=== PATIENT | male | born 1945 | race African-American/Black ===

== ENCOUNTER 2017-07-21 13:20 | Inpatient (IN) | payer MEDICARE, MEDICAID ==
[~2017-07-21] VITALS: Ht 188 cm; Wt 84.4 kg
[2017-07-21] MEDS ORDERED: GLIP5TAB12 PO ×2 (13:27→23:58)
[2017-07-21] MEDS ORDERED: BACL20TA PO (13:27)
[2017-07-21] MEDS ORDERED: LINA5TAB PO (13:27)
[2017-07-21] MEDS ORDERED: CARV25TA47 PO (13:27)
[2017-07-21] MEDS ORDERED: ZOLP10TA2 PO (13:27)
[2017-07-21] MEDS ORDERED: ROSU20TA PO (13:28)
[2017-07-21] MEDS ORDERED: FURO-151 PO (13:28)
[2017-07-21] MEDS ORDERED: SPIR25TA4 PO (13:30)
[2017-07-21] MEDS ORDERED: FURO80TA3 PO (13:37)
[2017-07-21] MEDS ORDERED: ISOS60TA4 PO (13:37)
[2017-07-21] MEDS ORDERED: ASPI-1159 PO (13:37)
[2017-07-21] MEDS ORDERED: CLOP75TA16 PO (13:37)
[2017-07-21] MEDS ORDERED: DEXT 5% WATER + KCL 20MEQ/L 1,000 ML IV ONE (14:15)
[2017-07-21 14:57] LABS: BASOPHILS % 0.1 % (0.0-2.0); EOSINOPHILS % 0.1 % (0.0-5.0); HEMATOCRIT. 25.2 % (42.0-52.0); HEMOGLOBIN. 8.3 g/dL (14.0-18.0); LYMPHOCYTES % 7.5 % (20.0-50.0); MEAN CORPUSCULAR HEMOGLOBIN 27.7 pg (28.0-32.0); MEAN CORPUSCULAR VOLUME 84.8 fL (80.0-94.0); MEAN PLATELET VOLUME 9.4 fl (7.4-10.4); MONOCYTES % 4.3 % (2.0-8.0); PLATELET 102 x1000/uL (130-400); RED BLOOD CELL COUNT 2.97 mill/uL (4.7-6.1); RED CELL DISTRIBUTION WIDTH 19.6 % (11.6-14.6)
[2017-07-21 14:59] LABS: INR 1.4
[2017-07-21 15:00] LABS: CHLORIDE 113 mEq/L (98-107)
[2017-07-21 15:02] LABS: CARBON DIOXIDE 22 mEq/L (21-32)
[2017-07-21 15:58] LABS: CLARITY URINE CLEAR (CLEAR); COLOR URINE YELLOW (YELLOW); GLUCOSE URINE NEGATIVE (NEGATIVE); KETONES URINE NEGATIVE (NEGATIVE); LEUKOCYTE ESTERASE URINE NEGATIVE (NEGATIVE); NITRITE URINE POSITIVE (NEGATIVE); OCCULT BLOOD URINE 1+ (NEGATIVE); PROTEIN URINE 2+ (NEGATIVE); SPECIFIC GRAVITY URINE 1.013 (1.005-1.030); UROBILINOGEN URINE 0.2 E.U./dL (0.2-1.0)
[2017-07-21] MEDS ORDERED: HYDRALAZINE 20MG/ML VIAL IV ONE (16:00)
[2017-07-21] MEDS ORDERED: LORAZEPAM 2MG/ML CPJ IV ONE (17:00)
[2017-07-21] MEDS ORDERED: CEFTRIAXONE 1 G PREMIX 50 ML IV ONE (17:00)
[2017-07-21] MEDS ORDERED: IPRATROPIUM/ALBUTEROL 0.5-3(2.5)MG/3ML NEB INH PRN (19:45)
[2017-07-21] MEDS ORDERED: DIPHENHYDRAMINE 50MG/ML VIAL IV PRN (19:45)
[2017-07-21] MEDS ORDERED: ONDANSETRON HCL 4MG/2ML VIAL IV PRN (19:45)
[2017-07-21] MEDS ORDERED: MAGNESIUM/ALUMINUM HYDROXIDE/SIMETHICONE 30ML UDC PO PRN (19:45)
[2017-07-21] MEDS ORDERED: ACETAMINOPHEN 325MG TABLET PO PRN (19:45)
[2017-07-21] MEDS: CLONIDINE 0.1MG TABLET PO PRN (20:52)
[2017-07-21] MEDS ORDERED: DEXTROSE 50% WATER 50ML SYRINGE IV PRN (21:21)
[2017-07-21 23:00] VITALS: BP 186/64
[2017-07-21] MEDS ORDERED: DEXT 5%/0.45% NACL 1000ML 1,000 ML IV SCH (23:00)
[2017-07-21] MEDS ORDERED: FERR325T6 PO (23:37)
[2017-07-21 23:53] VITALS: BP 181/89
[2017-07-22] MEDS: HYDRALAZINE 20MG/ML VIAL IV PRN (02:13)
[2017-07-22] MEDS: GUAIFENESIN 200MG/10ML SUGAR FREE UDC PO PRN ×2 (04:35→20:45)
[2017-07-22 06:04] VITALS: BP 155/72
[2017-07-22] MEDS: BLOOD SUGAR DIAGNOSTIC STRIP TEST SCH ×5 (07:20→20:46)
[2017-07-22 07:29] VITALS: BP 146/75
[2017-07-22] MEDS: INSULIN LISPRO 100 UNITS/ML SUBCUT SCH ×5 (07:50→20:46)
[2017-07-22] MEDS ORDERED: CARVEDILOL 25MG TABLET PO SCH (09:00)
[2017-07-22] MEDS: CARVEDILOL 25MG TABLET PO SCH ×2 (09:00→20:46)
[2017-07-22] MEDS: ISOSORBIDE MONONITRATE 60MG TABLET SR 24HR PO SCH (09:00)
[2017-07-22 09:02] LABS: *AMPHETAMINES SCREEN URINE NEGATIVE (NEGATIVE); *BARBITURATES SCREEN URINE NEGATIVE (NEGATIVE); *BENZODIAZEPINES SCREEN URINE NEGATIVE (NEGATIVE); *COCAINE SCREEN URINE NEGATIVE (NEGATIVE); CANNABINOID URINE SCREEN NEGATIVE (NEGATIVE); METHADONE URINE SCREEN NEGATIVE (NEGATIVE); OPIATES URINE SCREEN PRESUMTIVE POSITIVE (NEGATIVE); PHENCYCLIDINE URINE SCREEN NEGATIVE (NEGATIVE)
[2017-07-22] MEDS: FUROSEMIDE 40MG/4ML VIAL IVP SCH (09:18)
[2017-07-22] MEDS: ASPIRIN 81MG EC TABLET PO SCH (09:18)
[2017-07-22] MEDS: CLOPIDOGREL 75MG TABLET PO SCH (09:19)
[2017-07-22] MEDS: SPIRONOLACTONE 25MG TABLET PO SCH (09:19)
[2017-07-22 11:43] VITALS: BP 157/80
[2017-07-22 16:00] VITALS: BP 154/82
[2017-07-22 16:09] VITALS: BP 162/87
[2017-07-22 20:00] VITALS: BP 158/85
[2017-07-23] VITALS: BP 164/85
[2017-07-23] MEDS: CLONIDINE 0.1MG TABLET PO PRN (00:53)
[2017-07-23] MEDS ORDERED: ZOLPIDEM TARTRATE 5MG TABLET PO PRN (01:30)
[2017-07-23 04:00] VITALS: BP 166/83
[2017-07-23] MEDS: HYDRALAZINE 20MG/ML VIAL IV PRN (05:57)
[2017-07-23] MEDS: BLOOD SUGAR DIAGNOSTIC STRIP TEST SCH ×3 (06:23→17:04)
[2017-07-23] MEDS: INSULIN LISPRO 100 UNITS/ML SUBCUT SCH ×3 (07:38→17:06)
[2017-07-23 08:00] VITALS: BP 162/75
[2017-07-23] MEDS: CARVEDILOL 25MG TABLET PO SCH (09:00)
[2017-07-23] MEDS: ISOSORBIDE MONONITRATE 60MG TABLET SR 24HR PO SCH (09:00)
[2017-07-23] MEDS: SPIRONOLACTONE 25MG TABLET PO SCH (09:41)
[2017-07-23] MEDS: CLOPIDOGREL 75MG TABLET PO SCH (09:41)
[2017-07-23] MEDS: FUROSEMIDE 40MG/4ML VIAL IVP SCH (09:41)
[2017-07-23] MEDS: ASPIRIN 81MG EC TABLET PO SCH (09:41)
[2017-07-23 12:00] VITALS: BP 164/86
[2017-07-23 14:58] VITALS: BP 162/73
[2017-07-24] MEDS ORDERED: MULTIVITAMINS,THER W-MINERALS TABLET PO SCH (09:00)
[2017-07-24] MEDS ORDERED: ASCORBIC ACID 250 MG TABLET PO SCH (09:00)
[2017-07-24] MEDS ORDERED: ZINC SULFATE 220 MG ( 50 ) CAPSULE PO SCH (09:00)
== END 2017-07-23 22:15 | disposition home or self-care (01) | DRG 70 ==
LOC: ER 14:03 → 6WST 17:08 → ENRESERV 20:11 → 6WST 07-22 00:01
PROVIDERS: ADMIT Internal Medicine; ATTEND Internal Medicine
DX: G93.41 Metabolic encephalopathy (principal); E43 Unspecified severe protein-calorie malnutrition; I50.23 Acute on chronic systolic (congestive) heart failure; I13.0 Hypertensive heart and chronic kidney disease with heart failure and stage 1 through stage 4 chronic kidney disease, or unspecified chronic kidney disease; I69.354 Hemiplegia and hemiparesis following cerebral infarction affecting left non-dominant side; N30.00 Acute cystitis without hematuria; E11.649 Type 2 diabetes mellitus with hypoglycemia without coma; E11.22 Type 2 diabetes mellitus with diabetic chronic kidney disease; N18.9 Chronic kidney disease, unspecified; D63.8 Anemia in other chronic diseases classified elsewhere; Z79.82 Long term (current) use of aspirin; Z82.49 Family history of ischemic heart disease and other diseases of the circulatory system; Z79.899 Other long term (current) drug therapy; Z83.3 Family history of diabetes mellitus; Z95.4 Presence of other heart-valve replacement; Z68.23 Body mass index [BMI] 23.0-23.9, adult
CPT/HCPCS: 36415; 71010; 80053; 80305; 81001; 82962; 83036; 83605; 85025; 85610; 87040; 93005; 93306; 96374; 99285; J0360; J0696; J1940; J2060; J7030; J7060; J7620

== ENCOUNTER 2017-08-27 04:34 | Inpatient (IN) | payer MEDICARE, MEDICAID ==
[~2017-08-27] VITALS: Ht 188 cm; Wt 85.7 kg
[~2017-08-27 04:34] MED LIST: ASPI-1159 PO; BACL20TA PO; CARV25TA47 PO; CLOP75TA16 PO; FERR325T6 PO; FURO-151 PO; ISOS60TA4 PO; ROSU20TA PO; SPIR25TA4 PO; ZOLP10TA2 PO
[2017-08-27 06:39] LABS: INR 1.3; PROTHROMBIN TIME 13.2 sec (9.4-11.6)
[2017-08-27 06:40] LABS: BASOPHILS % 0.3 % (0.0-2.0); EOSINOPHILS % 0.6 % (0.0-5.0); HEMATOCRIT. 28.9 % (42.0-52.0); HEMOGLOBIN. 9.7 g/dL (14.0-18.0); LYMPHOCYTES % 11.2 % (20.0-50.0); MEAN CORPUSCULAR HEMOGLOBIN 28.8 pg (28.0-32.0); MEAN CORPUSCULAR VOLUME 85.7 fL (80.0-94.0); MEAN PLATELET VOLUME 9.3 fl (7.4-10.4); MONOCYTES % 6.5 % (2.0-8.0); NEUTROPHILS % 81.4 % (40.0-76.0); PLATELET 102 x1000/uL (130-400); RED BLOOD CELL COUNT 3.38 mill/uL (4.7-6.1); RED CELL DISTRIBUTION WIDTH 17.4 % (11.6-14.6)
[2017-08-27 06:47] LABS: CARBON DIOXIDE 26 mEq/L (21-32); CHLORIDE 112 mEq/L (98-107); TROPONIN I 0.06 ng/mL (0.00-0.04)
[2017-08-27] MEDS ORDERED: FUROSEMIDE 40MG/4ML VIAL IVP ONE (07:45)
[2017-08-27] MEDS ORDERED: ASPIRIN 81MG TABLET PO ONE (08:15)
[2017-08-27 09:00] VITALS: BP 188/104
[2017-08-27 09:54] VITALS: BP 188/104
[2017-08-27] MEDS ORDERED: ENOXAPARIN 40MG/0.4ML SYR SUBCUT SCH ×2 (12:00→14:30)
[2017-08-27 12:30] VITALS: BP 172/100
[2017-08-27 14:00] LABS: CREATINE KINASE MB FRACTION 3.2 ng/mL (0.5-3.6); TROPONIN I 0.06 ng/mL (0.00-0.04)
[2017-08-27 14:07] LABS: T4 FREE 1.54 ng/dL (0.76-1.46)
[2017-08-27 14:17] LABS: GLUCOSE URINE NEGATIVE (NEGATIVE); KETONES URINE NEGATIVE (NEGATIVE); LEUKOCYTE ESTERASE URINE 1+ (NEGATIVE); NITRITE URINE NEGATIVE (NEGATIVE); OCCULT BLOOD URINE 1+ (NEGATIVE); PROTEIN URINE 2+ (NEGATIVE); SPECIFIC GRAVITY URINE 1.009 (1.005-1.030); UROBILINOGEN URINE 0.2 E.U./dL (0.2-1.0)
[2017-08-27 14:20] LABS: CLARITY URINE CLOUDY (CLEAR); COLOR URINE YELLOW (YELLOW)
[2017-08-27] MEDS ORDERED: DIPHENHYDRAMINE 50MG/ML VIAL IV PRN (14:30)
[2017-08-27] MEDS ORDERED: CLONIDINE 0.1MG TABLET PO PRN (14:30)
[2017-08-27] MEDS ORDERED: ONDANSETRON HCL 4MG/2ML VIAL IV PRN (14:30)
[2017-08-27] MEDS ORDERED: IPRATROPIUM/ALBUTEROL 0.5-3(2.5)MG/3ML NEB INH PRN (14:30)
[2017-08-27] MEDS ORDERED: CARVEDILOL 25MG TABLET PO SCH (14:30)
[2017-08-27 14:32] LABS: *AMPHETAMINES SCREEN URINE NEGATIVE (NEGATIVE); *BARBITURATES SCREEN URINE NEGATIVE (NEGATIVE); *BENZODIAZEPINES SCREEN URINE NEGATIVE (NEGATIVE); *COCAINE SCREEN URINE NEGATIVE (NEGATIVE); CANNABINOID URINE SCREEN NEGATIVE (NEGATIVE); METHADONE URINE SCREEN NEGATIVE (NEGATIVE); OPIATES URINE SCREEN PRESUMTIVE POSITIVE (NEGATIVE); PHENCYCLIDINE URINE SCREEN NEGATIVE (NEGATIVE)
[2017-08-27] MEDS: SPIRONOLACTONE 25MG TABLET PO SCH ×2 (15:43→20:02)
[2017-08-27 16:03] VITALS: BP 171/102
[2017-08-27 20:00] VITALS: BP 166/90
[2017-08-27] MEDS: ISOSORBIDE MONONITRATE 60MG TABLET SR 24HR PO SCH (20:03)
[2017-08-27] MEDS ORDERED: DEXTROSE 50% WATER 50ML SYRINGE IV PRN (22:15)
[2017-08-27] MEDS: ATORVASTATIN CALCIUM 20MG TABLET PO SCH (22:16)
[2017-08-27] MEDS: CARVEDILOL 6.25 MG TABLET PO SCH (23:36)
[2017-08-27] MEDS: LOSARTAN POTASSIUM 50 MG TABLET PO SCH (23:36)
[2017-08-27] MEDS: SODIUM CHLORIDE 0.9% INJ 3ML FLUSH IVF SCH (23:37)
[2017-08-28] VITALS (7 sets, daily range): BP systolic 142–174; BP diastolic 88–101
[2017-08-28 00:12] LABS: TROPONIN I 0.05 ng/mL (0.00-0.04)
[2017-08-28] MEDS: ZOLPIDEM TARTRATE 5MG TABLET PO PRN ×2 (03:57→21:42)
[2017-08-28] MEDS: BLOOD SUGAR DIAGNOSTIC STRIP TEST SCH ×4 (06:26→21:41)
[2017-08-28] MEDS: SODIUM CHLORIDE 0.9% INJ 3ML FLUSH IVF SCH ×3 (06:26→21:41)
[2017-08-28 07:03] LABS: CARBON DIOXIDE 28 mEq/L (21-32)
[2017-08-28 07:10] LABS: CREATINE KINASE 64 IU/L (39-308); CREATINE KINASE MB FRACTION 2.6 ng/mL (0.5-3.6); TROPONIN I 0.04 ng/mL (0.00-0.04)
[2017-08-28] MEDS ORDERED: INSULIN LISPRO 100 UNITS/ML SUBCUT SCH (07:50)
[2017-08-28 07:58] LABS: CHLORIDE 113 mEq/L (98-107)
[2017-08-28] MEDS: FUROSEMIDE 40MG/4ML VIAL IVP SCH (08:34)
[2017-08-28] MEDS: LOSARTAN POTASSIUM 50 MG TABLET PO SCH (08:34)
[2017-08-28] MEDS: ASPIRIN 81MG EC TABLET PO SCH (08:35)
[2017-08-28] MEDS: CARVEDILOL 6.25 MG TABLET PO SCH ×2 (08:35→21:40)
[2017-08-28] MEDS: ISOSORBIDE MONONITRATE 60MG TABLET SR 24HR PO SCH ×2 (08:36→21:40)
[2017-08-28] MEDS: SPIRONOLACTONE 25MG TABLET PO SCH ×2 (08:36→21:40)
[2017-08-28] MEDS: INSULIN LISPRO 100 UNITS/ML SUBCUT SCH ×4 (08:38→21:00)
[2017-08-28] MEDS ORDERED: IPRATROPIUM/ALBUTEROL 0.5-3(2.5)MG/3ML NEB HHN PRN (12:00)
[2017-08-28] MEDS: IPRATROPIUM/ALBUTEROL 0.5-3(2.5)MG/3ML NEB HHN SCH ×2 (12:13→21:30)
[2017-08-28] MEDS: BUDESONIDE 0.5MG/2ML NEB HHN SCH ×2 (12:14→21:29)
[2017-08-28] MEDS: LEVOFLOXACIN 750MG PREMIX 150 ML IV SCH (13:53)
[2017-08-28] MEDS: ATORVASTATIN CALCIUM 20MG TABLET PO SCH ×2 (21:00→21:40)
[2017-08-28] MEDS: ACETAMINOPHEN 325MG TABLET PO PRN (21:45)
[2017-08-29] VITALS (7 sets, daily range): BP systolic 159–179; BP diastolic 70–99
[2017-08-29] MEDS: IPRATROPIUM/ALBUTEROL 0.5-3(2.5)MG/3ML NEB HHN SCH ×3 (02:35→21:50)
[2017-08-29] MEDS: SODIUM CHLORIDE 0.9% INJ 3ML FLUSH IVF SCH ×3 (05:17→21:05)
[2017-08-29] MEDS: BLOOD SUGAR DIAGNOSTIC STRIP TEST SCH ×4 (06:56→21:05)
[2017-08-29] MEDS: INSULIN LISPRO 100 UNITS/ML SUBCUT SCH ×4 (07:54→21:00)
[2017-08-29] MEDS: LOSARTAN POTASSIUM 50 MG TABLET PO SCH (08:24)
[2017-08-29] MEDS: SPIRONOLACTONE 25MG TABLET PO SCH ×2 (08:24→21:03)
[2017-08-29] MEDS: ASPIRIN 81MG EC TABLET PO SCH (08:25)
[2017-08-29] MEDS: CARVEDILOL 6.25 MG TABLET PO SCH ×2 (08:25→21:04)
[2017-08-29] MEDS: FUROSEMIDE 40MG/4ML VIAL IVP SCH (08:25)
[2017-08-29] MEDS: ISOSORBIDE MONONITRATE 60MG TABLET SR 24HR PO SCH ×2 (08:25→21:04)
[2017-08-29] MEDS: BUDESONIDE 0.5MG/2ML NEB HHN SCH ×2 (09:30→21:50)
[2017-08-29] MEDS: SILVER SULFADIAZINE 1% CREAM 50GM TOP SCH (18:46)
[2017-08-29] MEDS ORDERED: SILVER SULFADIAZINE 1% CREAM 50GM TOP SCH (21:00)
[2017-08-29] MEDS: ATORVASTATIN CALCIUM 20MG TABLET PO SCH (21:00)
[2017-08-29] MEDS: ZOLPIDEM TARTRATE 5MG TABLET PO PRN (21:05)
[2017-08-29] MEDS ORDERED: METOLAZONE 10MG TABLET PO NR (22:00)
[2017-08-29] MEDS: HYDRALAZINE HCL 100MG TABLET PO SCH (22:37)
[2017-08-30 00:08] VITALS: BP 184/96
[2017-08-30] MEDS: IPRATROPIUM/ALBUTEROL 0.5-3(2.5)MG/3ML NEB HHN SCH ×4 (01:50→20:13)
[2017-08-30 04:00] VITALS: BP 152/87
[2017-08-30 05:29] LABS: CARBON DIOXIDE 28 mEq/L (21-32); CHLORIDE 113 mEq/L (98-107)
[2017-08-30] MEDS: FUROSEMIDE 40MG/4ML VIAL IVP SCH ×2 (06:20→17:22)
[2017-08-30] MEDS: SODIUM CHLORIDE 0.9% INJ 3ML FLUSH IVF SCH ×2 (06:20→13:34)
[2017-08-30] MEDS: HYDRALAZINE HCL 100MG TABLET PO SCH ×3 (06:21→22:42)
[2017-08-30] MEDS: BLOOD SUGAR DIAGNOSTIC STRIP TEST SCH ×4 (06:21→21:00)
[2017-08-30] MEDS: INSULIN LISPRO 100 UNITS/ML SUBCUT SCH ×4 (08:00→21:00)
[2017-08-30 08:10] VITALS: BP 157/87
[2017-08-30] MEDS: CARVEDILOL 6.25 MG TABLET PO SCH ×2 (08:41→22:37)
[2017-08-30] MEDS: ASPIRIN 81MG EC TABLET PO SCH (08:41)
[2017-08-30] MEDS: ISOSORBIDE MONONITRATE 60MG TABLET SR 24HR PO SCH ×2 (08:41→22:37)
[2017-08-30] MEDS: SPIRONOLACTONE 25MG TABLET PO SCH ×2 (08:41→22:35)
[2017-08-30] MEDS: LOSARTAN POTASSIUM 100 MG TABLET PO SCH (08:42)
[2017-08-30] MEDS: SILVER SULFADIAZINE 1% CREAM 50GM TOP SCH ×2 (08:45→22:46)
[2017-08-30] MEDS: BUDESONIDE 0.5MG/2ML NEB HHN SCH ×2 (10:32→20:13)
[2017-08-30 12:00] VITALS: BP_SYST 142; BP_SYST 148; BP_DIAS 109; BP_DIAS 50
[2017-08-30] MEDS: LEVOFLOXACIN 750MG PREMIX 150 ML IV SCH (13:35)
[2017-08-30 16:07] VITALS: BP 154/88
[2017-08-30 20:00] VITALS: BP 116/88
[2017-08-30] MEDS: ATORVASTATIN CALCIUM 20MG TABLET PO SCH (22:38)
[2017-08-31] VITALS: BP 168/92
[2017-08-31 04:00] VITALS: BP 168/92
[2017-08-31 05:24] LABS: INR 1.2; PROTHROMBIN TIME 12.7 sec (9.4-11.6)
[2017-08-31] MEDS: SODIUM CHLORIDE 0.9% INJ 3ML FLUSH IVF SCH ×3 (05:28→21:26)
[2017-08-31] MEDS: FUROSEMIDE 40MG/4ML VIAL IVP SCH ×2 (05:28→18:00)
[2017-08-31] MEDS: HYDRALAZINE HCL 100MG TABLET PO SCH ×3 (05:46→21:28)
[2017-08-31 06:00] LABS: BASOPHILS % 0.3 % (0.0-2.0); EOSINOPHILS % 1.9 % (0.0-5.0); HEMATOCRIT. 25.9 % (42.0-52.0); HEMOGLOBIN. 8.5 g/dL (14.0-18.0); LYMPHOCYTES % 10.2 % (20.0-50.0); MEAN CORPUSCULAR HEMOGLOBIN 28.3 pg (28.0-32.0); MEAN CORPUSCULAR VOLUME 86.1 fL (80.0-94.0); MONOCYTES % 9.3 % (2.0-8.0); NEUTROPHILS % 78.3 % (40.0-76.0); RED BLOOD CELL COUNT 3.01 mill/uL (4.7-6.1); RED CELL DISTRIBUTION WIDTH 17.5 % (11.6-14.6)
[2017-08-31] MEDS: INSULIN LISPRO 100 UNITS/ML SUBCUT SCH ×4 (07:50→21:33)
[2017-08-31 08:10] VITALS: BP 154/80
[2017-08-31 08:13] LABS: MEAN PLATELET VOLUME 9.5 fl (7.4-10.4); PLATELET 70 x1000/uL (130-400)
[2017-08-31] MEDS: ASPIRIN 81MG EC TABLET PO SCH (09:00)
[2017-08-31] MEDS: SPIRONOLACTONE 25MG TABLET PO SCH ×2 (09:11→21:28)
[2017-08-31] MEDS: ISOSORBIDE MONONITRATE 60MG TABLET SR 24HR PO SCH ×2 (09:12→21:27)
[2017-08-31] MEDS: LOSARTAN POTASSIUM 100 MG TABLET PO SCH (09:12)
[2017-08-31] MEDS: CARVEDILOL 6.25 MG TABLET PO SCH ×2 (09:12→21:28)
[2017-08-31] MEDS: BLOOD SUGAR DIAGNOSTIC STRIP TEST SCH ×4 (09:13→21:28)
[2017-08-31] MEDS: SILVER SULFADIAZINE 1% CREAM 50GM TOP SCH ×2 (09:14→21:26)
[2017-08-31] MEDS: IPRATROPIUM/ALBUTEROL 0.5-3(2.5)MG/3ML NEB HHN SCH ×3 (09:44→14:18)
[2017-08-31] MEDS: BUDESONIDE 0.5MG/2ML NEB HHN SCH (09:44)
[2017-08-31] MEDS ORDERED: AMLODIPINE 5MG TABLET PO SCH (12:00)
[2017-08-31 12:42] VITALS: BP 148/76
[2017-08-31] MEDS: ACETAMINOPHEN 325MG TABLET PO PRN (13:47)
[2017-08-31 16:16] VITALS: BP 110/63
[2017-08-31 20:00] VITALS: BP 140/82
[2017-08-31] MEDS: ATORVASTATIN CALCIUM 20MG TABLET PO SCH (21:27)
[2017-08-31] MEDS: AMLODIPINE 5MG TABLET PO SCH (21:27)
[2017-09-01] VITALS (7 sets, daily range): BP systolic 125–149; BP diastolic 69–80
[2017-09-01] MEDS: IPRATROPIUM/ALBUTEROL 0.5-3(2.5)MG/3ML NEB HHN SCH ×4 (02:29→21:08)
[2017-09-01] MEDS: FUROSEMIDE 40MG/4ML VIAL IVP SCH ×2 (05:28→17:26)
[2017-09-01] MEDS: SODIUM CHLORIDE 0.9% INJ 3ML FLUSH IVF SCH ×3 (05:29→21:09)
[2017-09-01] MEDS: HYDRALAZINE HCL 100MG TABLET PO SCH ×3 (06:10→21:10)
[2017-09-01] MEDS: BLOOD SUGAR DIAGNOSTIC STRIP TEST SCH ×4 (06:21→21:12)
[2017-09-01] MEDS: INSULIN LISPRO 100 UNITS/ML SUBCUT SCH ×4 (07:50→21:00)
[2017-09-01] MEDS: SILVER SULFADIAZINE 1% CREAM 50GM TOP SCH ×3 (09:00→21:16)
[2017-09-01] MEDS: ASPIRIN 81MG EC TABLET PO SCH (09:00)
[2017-09-01] MEDS: ISOSORBIDE MONONITRATE 60MG TABLET SR 24HR PO SCH ×2 (09:11→21:10)
[2017-09-01] MEDS: LOSARTAN POTASSIUM 100 MG TABLET PO SCH (09:12)
[2017-09-01] MEDS: AMLODIPINE 5MG TABLET PO SCH ×2 (09:12→21:11)
[2017-09-01] MEDS: SPIRONOLACTONE 25MG TABLET PO SCH ×2 (09:12→21:10)
[2017-09-01] MEDS: CARVEDILOL 6.25 MG TABLET PO SCH ×2 (09:12→21:10)
[2017-09-01] MEDS ORDERED: LEVOFLOXACIN 250MG TABLET PO SCH (13:00)
[2017-09-01] MEDS: ATORVASTATIN CALCIUM 20MG TABLET PO SCH (21:10)
[2017-09-02] MEDS: IPRATROPIUM/ALBUTEROL 0.5-3(2.5)MG/3ML NEB HHN SCH ×2 (01:20→09:50)
[2017-09-02 04:30] VITALS: BP 134/95
[2017-09-02] MEDS: SODIUM CHLORIDE 0.9% INJ 3ML FLUSH IVF SCH ×2 (06:13→14:46)
[2017-09-02] MEDS: FUROSEMIDE 40MG/4ML VIAL IVP SCH (06:13)
[2017-09-02] MEDS: HYDRALAZINE HCL 100MG TABLET PO SCH ×2 (06:20→14:46)
[2017-09-02] MEDS: BLOOD SUGAR DIAGNOSTIC STRIP TEST SCH ×2 (06:58→12:20)
[2017-09-02] MEDS: INSULIN LISPRO 100 UNITS/ML SUBCUT SCH ×2 (07:50→13:02)
[2017-09-02 08:00] VITALS: BP 138/69
[2017-09-02] MEDS: ASPIRIN 81MG EC TABLET PO SCH (09:19)
[2017-09-02] MEDS: ISOSORBIDE MONONITRATE 60MG TABLET SR 24HR PO SCH (09:19)
[2017-09-02] MEDS: CARVEDILOL 6.25 MG TABLET PO SCH (09:19)
[2017-09-02] MEDS: AMLODIPINE 5MG TABLET PO SCH (09:20)
[2017-09-02] MEDS: LOSARTAN POTASSIUM 100 MG TABLET PO SCH (09:20)
[2017-09-02] MEDS: SPIRONOLACTONE 25MG TABLET PO SCH (09:20)
[2017-09-02 10:30] VITALS: BP 140/70
[2017-09-02 11:01] VITALS: BP 146/75
[2017-09-02] MEDS: SILVER SULFADIAZINE 1% CREAM 50GM TOP SCH (13:02)
== END 2017-09-02 16:45 | DRG 871 ==
LOC: ER 04:38 → 6WST 07:26 → EDBEDREQTM 07:28 → EDBEDREQ 07:28 → ENRESERV 08:14
PROVIDERS: ADMIT Internal Medicine; ATTEND Internal Medicine
DX: A41.9 Sepsis, unspecified organism (principal); J96.00 Acute respiratory failure, unspecified whether with hypoxia or hypercapnia; E43 Unspecified severe protein-calorie malnutrition; I50.23 Acute on chronic systolic (congestive) heart failure; I27.20 Pulmonary hypertension, unspecified; R18.8 Other ascites; E11.22 Type 2 diabetes mellitus with diabetic chronic kidney disease; E11.51 Type 2 diabetes mellitus with diabetic peripheral angiopathy without gangrene; I42.9 Cardiomyopathy, unspecified; I13.0 Hypertensive heart and chronic kidney disease with heart failure and stage 1 through stage 4 chronic kidney disease, or unspecified chronic kidney disease; N39.0 Urinary tract infection, site not specified; J44.1 Chronic obstructive pulmonary disease with (acute) exacerbation; I69.354 Hemiplegia and hemiparesis following cerebral infarction affecting left non-dominant side; E78.5 Hyperlipidemia, unspecified; H40.9 Unspecified glaucoma; G89.29 Other chronic pain; I25.10 Atherosclerotic heart disease of native coronary artery without angina pectoris; B95.61 Methicillin susceptible Staphylococcus aureus infection as the cause of diseases classified elsewhere; X58.XXXA Exposure to other specified factors, initial encounter; S91.002A Unspecified open wound, left ankle, initial encounter; Z60.2 Problems related to living alone; M54.9 Dorsalgia, unspecified; N18.9 Chronic kidney disease, unspecified; Z82.49 Family history of ischemic heart disease and other diseases of the circulatory system; Z91.14 Patient's other noncompliance with medication regimen; I25.2 Old myocardial infarction; Z95.5 Presence of coronary angioplasty implant and graft; Z79.899 Other long term (current) drug therapy; Z79.82 Long term (current) use of aspirin; Y93.89 Activity, other specified; Y92.89 Other specified places as the place of occurrence of the external cause; Y99.8 Other external cause status; Z87.01 Personal history of pneumonia (recurrent); Z68.24 Body mass index [BMI] 24.0-24.9, adult
CPT/HCPCS: 36415; 71010; 76705; 80048; 80053; 80061; 80305; 81001; 82550; 82553; 82962; 83036; 83735; 83880; 84439; 84443; 84484; 85025; 85049; 85379; 85610; 85730; 87070; 87077; 87086; 87186; 87205; 93005; 93306; 93970; 94640; 96374; 97110; 97163; 97530; 99285; J1650; J1815; J1940; J1956; J7050; J7620; J7626; A4315